=== PATIENT | female | born 1970 | race Caucasian/White ===

== ENCOUNTER 2016-10-26 17:10 | Emergency (ER) | payer MEDICAID ==
[2016-10-26] MEDS ORDERED: ALBUTEROL SULFATE/IPRATROPIUM 3 ML NEBU IH ONE ×2 (20:20→21:10)
[2016-10-26 20:32] LABS: Hematocrit 42.7 % (37.0-47.0); Hemoglobin 13.9 gm/dL (12.5-16.0); Mean Cell Volume 83.6 fl (78-100); Mean Corpuscular Hemoglobin 27.2 pg (27-31); Mean Corpuscular Hgb Conc 32.6 g/dl (32-36); Mean Platelet Volume 8.9 fl (6.0-9.5); Neutrophil # 13.3 K/mm3 (1.3-6.0); Neutrophil % 70.1 % (42-75.0); Platelet Count 676 K/mm3 (150-450); Red Blood Count 5.11 M/mm3 (4.2-5.4); Red Cell Distribution Width 14.1 % (11.5-14.0)
--- NOTE | 2016-10-26 20:33 | ERNOTE ---
Date of Service: 10/26/16 Time Seen by Provider: 10/26/16 20:06 Stated Complaint: COUGH, CHEST CONGESTION Presenting Symptoms:: cough, other - sinus congestion Source: patient Exam Limitations: no limitations Immunizations: IMMUNIZATION HX Immunizations Up to Date Yes History of Influenza Vaccine No Hx Pneumococcal Vaccination No Allergies/Adverse Reactions: Allergies acetaminophen [From Percocet] Allergy (Intermediate, Verified 10/26/16 17:26) HALLUCINATIONS WITH 2 TABLETS. Pt takes acetaminophen without complications oxycodone HCl [From Percocet] Allergy (Intermediate, Verified 10/26/16 17:26) HALLUCINATIONS WITH 2 TABLETS amoxicillin [Amoxicillin] Adverse Reaction (Verified 10/26/16 17:26) YEAST INFECTION Home Medications: HOME MEDICATIONS Enalapril Maleate [Vasotec] 20 mg PO DAILY 11/15/15 [Last Taken Unknown] glipiZIDE [Glucotrol] 5 mg PO BID 11/15/15 [Last Taken Unknown] metFORMIN HCL [Glucophage] 1,000 mg PO BIDWM 11/15/15 [Last Taken Unknown] traMADol HCL [Ultram] 50 mg PO QID PRN 02/13/16 [Last Taken Unknown] Albuterol Sulfate [Ventolin Hfa] 1 - 2 puff IH Q4H PRN #1 inhaler 09/23/16 [ Last Taken Unknown] Albuterol Sulfate [Albuterol Sulfate 2.5 MG/0.5ML] 1 vial IH Q4H PRN #100 vial 10/26/16 [Last Taken Unknown] - History of Present Ilness Narrative: Pt. comes in with c/o SOB, CP, fevers, sinus and chest congestion and "coughing so hard she throws up" Pt. states that she has been battling a upper resp infection intermittently for four week and has been on different antibiotics each time. Pt. is currently antibiotics. Pt. states that symptoms have worsened constantly since onset. Pt. denies any alleviating factors. Review of Systems - Review of Systems Constitutional: Present: no symptoms reported. Absent: recent illness, fever, chills, weakness, fatigue, malaise EYE: Present: no symptoms reported ENT: Present: nose congestion Respiratory: Present: shortness of breath, cough. Absent: wheezing Cardiology: Present: chest pain. Absent: palpitations, edema Gastrointestinal/Abdominal: Present: no symptoms reported. Absent: nausea, vomiting, diarrhea, abdominal pain Genitourinary: Present: no symptoms reported Musculoskeletal: Present: no symptoms reported. Absent: back pain, joint pain Skin: Present: no symptoms reported Neurological: Present: headache. Absent: dizziness/light-headedness, numbness, tingling All Other Systems: All systems neg except as marked - Patient's Past Medical History Patient History - Medical: Anxiety, Diabetes Type 2, Depression, Hypothyroidism , Obesity Patient History - Cardiac/Respiratory: Hypertension Patient History - Cancer: No Hx of Cancer Patient History - Surgical Procedures: Cholecystectomy, D & C, Tubal Ligation, Other Patient History - Other: None - Family History Mother Family History - Cardiac/Respiratory: Hypertension Father Family History - Medical: Diabetes Type 2 Family History - Cardiac/Respiratory: Hypertension - Social History Living Situations: home Alcohol Use: none Drug Use: none - Immunizations Immunizations Up to Date: Yes Hx Pneumococcal Vaccination: No History of Influenza Vaccine: No Physical Exam - Physical Exam General Appearance: Present: wd/wn, alert, no apparent distress Eye Exam: Normal inspection: bilateral, PERRL: bilateral, EOMI: bilateral Ears, Nose, Throat: Present: hearing grossly normal, nasal congestion, sinus pain/drainage - maxillary, normal pharynx Neck: Present: normal inspection, nontender. Absent: lymphadenopathy (R), lymphadenopathy (L) Respiratory: Present: no respiratory distress, normal breath sounds, no accessory muscle use, chest nontender, lungs clear Cardiovascular/Chest: Present: regular rate, rhythm, no murmur, normal peripheral pulses Gastrointestinal/Abdominal: Present: normal bowel sounds, nontender, nondistended, soft, no organomegaly Back Exam: Present: normal inspection, normal range of motion, no CVA tenderness , no vertebral tenderness Extremity Exam: Present: normal inspection, non-tender, no edema, normal range of motion Neurological Exam: Present: alert, oriented, normal mood/affect, no motor/ sensory deficits Skin Exam: Present: normal color, warm/dry. Absent: pallor, skin rash ED Progress - Date and Time Seen: Date and Time: 10/26/16 21:09 Feel that WBC and PLT count are appropriately elevated for illness per pt. baseline but will have pt. mention when she follows up with [facility] hematology. - Results and Orders Patient's Lab Results:: I have reviewed the patient's lab results. - Vital Signs Patient's Vital Signs:: I have reviewed the patient's vital signs. Vital Signs: Vital Signs 10/26/16 17:21 Temperature 37.7 C H Pulse Rate 100 Respiratory 12 Rate Blood Pressure 163/98 O2 Sat by Pulse 95 Oximetry - EKG EKG: NSR EKG read: Interp. by me - X-Ray X-Ray #1 X-Ray: chest Interpretation: Interp. by me X-ray Comments: stable granulomatous disease, no consolidation, no pleural effusion. - Progress/Reassessment Chief Complaint: Upper Respiratory Symptoms Progress:: Improved Departure - Departure Clinical Impression: Bronchitis Headache Qualifiers: Headache type: other headache syndrome Qualified Code(s): G44.89 - Other headache syndrome Disposition: Home self-care Condition: Good Instructions: Acute Bronchitis, [id number]-[id number], Nausea, Adult, [id number] Additional Instructions: Please follow up with provider as planned. Please use nebulizer every four hours after you pick it up tomorrow, use inhaler in the meantime. Please perform deep breathing and coughing two times every hour for lung exercises. Referrals: Claribel Haley MD [Primary Care Provider] - Prescriptions: Albuterol Sulfate [Albuterol Sulfate 2.5 MG/0.5ML] 1 vial IH Q4H PRN #100 vial PRN Reason: Shortness Of Breath
[2016-10-26 20:52] LABS: ALT 39 U/L (19-67); AST 16 U/L (0-48); Albumin * 3.4 gm/dl (3.4-5.0); Alkaline Phosphatase * 62 U/L (50-170); Anion Gap 11.2 mmol/L (6.8-13.8); BNP * 70 pg/mL (5-150); BUN/Creatinine Ratio 15.8 (9.0-21.6); Bilirubin, Total 0.2 mg/dL (0.0-1.1); Blood Urea Nitrogen 12 mg/dL (3-23); Ca. Corrected For Albumin 9.3 mg/dL (8.4-10.2); Calcium * 9.1 mg/dL (7.9-10.9); Carbon Dioxide 26.6 mmol/L (24-32.6); Chloride 104 mmol/L (97-106); Glucose * 167 mg/dL (70-110); Potassium 3.8 mmol/L (3.4-4.6); Sodium 138 mmol/L (132-142); Total Protein 7.4 gm/dL (6.2-8.2); Troponin I Less than 0.017 ng/ml (0.00-0.10)
[2016-10-26] MEDS ORDERED: KETOROLAC TROMETHAMINE 60 MG/2 ML VIAL IM ONE ×2 (22:12→22:19)
[2016-10-26] MEDS ORDERED: diphenhydrAMINE HCL 50 MG/ML VIAL IM ONE (22:12)
[2016-10-26] MEDS ORDERED: METOCLOPRAMIDE HCL 5 MG/ML VIAL IM ONE (22:13)
[2016-10-26] MEDS ORDERED: diphenhydrAMINE HCL 50 MG/ML VIAL ONE (22:19)
[2016-10-26] MEDS ORDERED: METOCLOPRAMIDE HCL 5 MG/ML VIAL ONE (22:19)
[2016-10-26 22:37] VITALS: BP 170/91
== END 2016-10-26 22:50 | disposition home or self-care (01) ==
LOC: ER 17:10
DX: J40 Bronchitis, not specified as acute or chronic (principal); G44.89 Other headache syndrome

== ENCOUNTER 2017-06-28 14:05 | Emergency (ER) | payer MEDICAID ==
[2017-06-28 14:14] VITALS: BP 180/96
[2017-06-28] MEDS ORDERED: KETOROLAC TROMETHAMINE 60 MG/2 ML VIAL IM ONE ×2 (14:43→14:46)
--- NOTE | 2017-06-28 14:51 | ERNOTE ---
Upper Extremity HPI - Narrative Date of Service: 06/28/17 - General Extremities Pain Location: wrist: right Time Seen by Provider: 06/28/17 14:20 Source: patient Exam Limitations: no limitations - Immun/Allergies/Home Medications Immunizations: IMMUNIZATION HX Immunizations Up to Date Yes History of Influenza Vaccine No Hx Pneumococcal Vaccination No Allergies/Adverse Reactions: Allergies Allergy/AdvReac Type Severity Reaction Status Date / Time acetaminophen [From Percocet] Allergy Intermediate HALLUCINATI Verified 14:14 ONS oxycodone HCl [From Percocet] Allergy Intermediate HALLUCINATI Verified 14:14 ONS amoxicillin [Amoxicillin] AdvReac YEAST Verified 06/28/17 14:14 INFECTION Home Medications: HOME MEDICATIONS Enalapril Maleate [Vasotec] 20 mg PO DAILY 11/15/15 [Last Taken Unknown] glipiZIDE [Glucotrol] 5 mg PO BID 11/15/15 [Last Taken Unknown] metFORMIN HCL [Glucophage] 1,000 mg PO BIDWM 11/15/15 [Last Taken Unknown] - History of Present Illness Narrative: 46-year-old female presents to the emergency room for right wrist discomfort. Patient states that she has had an increase in this right wrist discomfort over the last few days. Range of motion is within normal limits but after certain movements her right hand will start to have increased pain, numbness, and tingle. Patient states she has had a carpal carpal tunnel surgery on this right wrist, and that this pain and other symptoms are similar to her symptoms before her previous surgery Date (Duration): 06/28/17 Occurred: last week Location of Incident: home Method of Injury: Reports: no apparent injury Modifying Factors - (Improves): Reports: immobilization Modifying Factors - (Worsens): Reports: movement Associated Symptoms: Reports: tingling, numbness distally Other Injuries: Reports: none Prior Treament: Reports: similar symptoms before Review of Systems - Review of Systems Constitutional: Present: See HPI EYE: Present: see HPI ENT: Present: See HPI Respiratory: Present: See HPI Cardiology: Present: See HPI Gastrointestinal/Abdominal: Present: See HPI Genitourinary: Present: See HPI Musculoskeletal: Present: no symptoms reported, joint pain Skin: Present: no symptoms reported Neurological: Present: See HPI Endocrine: Present: no symptoms reported Hematologic/Lymphatic: Present: no symptoms reported Psych: Present: no symptoms reported All Other Systems: All systems neg except as marked - Patient's Past Medical History Patient History - Medical: Diabetes Type 2, Depression, Hypothyroidism, Obesity Patient History - Cardiac/Respiratory: Hypertension Patient History - Cancer: No Hx of Cancer Patient History - Surgical Procedures: Cholecystectomy, D & C, Tubal Ligation, Other Patient History - Other: None - Family History Mother Family History - Cardiac/Respiratory: Hypertension Father Family History - Medical: Diabetes Type 2 Family History - Cardiac/Respiratory: Hypertension - Social History Living Situations: home Abuse History: No History of abuse Psych History: Hx of Depression Smoking Status: Never smoker Alcohol Use: none Drug Use: none - Immunizations Immunizations Up to Date: Yes Hx Pneumococcal Vaccination: No History of Influenza Vaccine: No Physical Exam - Physical Exam Narrative: positive phalens and tinels test. General Appearance: Present: wd/wn, alert, no apparent distress Head Exam: Present: normal inspection, no evidence of injury Eye Exam: Normal inspection: bilateral, PERRL: bilateral, EOMI: bilateral Ears, Nose, Throat: Present: normal ENT inspection, normal pharynx Neck: Present: normal inspection, nontender Respiratory: Present: no respiratory distress, normal breath sounds, no accessory muscle use, chest nontender Cardiovascular/Chest: Present: regular rate, rhythm, normal peripheral pulses Peripheral Pulses: N=norm/S=strong/W=weak/B=bound/A=absent: Radial (R): Normal, Radial (L): Normal Gastrointestinal/Abdominal: Present: normal bowel sounds, nontender, soft. Absent: distended Back Exam: Present: normal inspection, normal range of motion, no vertebral tenderness Extremity Exam: Present: normal except -, normal range of motion, no edema Neurological Exam: Present: alert, oriented, normal mood/affect, no motor/ sensory deficits Skin Exam: Present: normal color, warm/dry Lymphatic Exam: Present: no adenopathy ED Progress - Vital Signs Vital Signs: Vital Signs 06/28/17 14:10 Temperature 37.6 C H Pulse Rate 90 Respiratory 16 Rate Blood Pressure 180/96 O2 Sat by Pulse 97 Oximetry - X-Ray X-Ray #1 X-Ray: wrist Interpretation: Reviewed by me X-ray Comments: [facility] PATIENT RADIOLOGY STUDY REPORT Patient Patient Name:PELON SELBY Date: 1970 Sex: F Order Number: [id number] Unique Exam ID: [id number] Exam Requested: WRISTNAVRT - Wrist 3 View W/ William RT * Date Scheduled: 06-28-2017 02:14 PM Study Priority: Requesting Service: Requesting Physician: Marleen Hernandez Reason for Exam: wrist pain Radiological Report : [place] [address] NAME: PELON SELBY : 1970 MR #: [id number] CC: LOC: [facility] DATE: X-RAY REPORT [id number] RAD/Wrist 3 View W/ William RT * Exam Date: 06/28/2017 14:14 Ordering Physician: Marleen Hernandez HISTORY/INDICATION: wrist pain Additional history from technologist: Repetitive motion injury. Pain in the carpal tunnel area. TECHNIQUE: 4 views of the right wrist. COMPARISONS: None available. Wrist 3 View W/ William RT * No definable fracture lucency or cortical discontinuity. There is mildly increased density within the central aspect of the lunate. There is no evidence for fragmentation or collapse. Joint spaces are in gross normal alignment without subluxation or dislocation. Minimal ulnar positive variance noted. Diffuse soft tissue prominence which may be secondary due to body habitus. No definite focal soft tissue finding. IMPRESSION: 1. No definable fracture. 2. Increased density within the central aspect of the lunate. Consider lunate avascular necrosis/ Kienbock disease. 3. Minimal ulnar positive variance noted. Correlate clinically for triangular fibrocartilage complex pathology. 4. Consider nonemergent routine MRI of the wrist to further evaluate. Electronically signed by Dmitry Zamarripa M.D.. Dmitry Zamarripa MD Dict: 06/28/171428 Typed: 06/28/171428/ - Progress/Reassessment Chief Complaint: Wrist Injury/Pain Plan - Plan Plan: patient will try OTC NSAID and follow up wi Dr Shea. patient has some relief with cockup wrist splint and NSAID Departure Clinical Impression: Carpal tunnel syndrome of right wrist - Departure Disposition: Home Follow Up Needed Condition: Stable Instructions: Carpal Tunnel Syndrome, [id number] Additional Instructions: Continue any previous home medications as directed. Follow-up with Dr. Thomas in the next few days. Return to the emergency room if symptoms return or persist. She may take [id number] ibuprofen or Naprosyn as needed for pain. Referrals: Claribel Haley MD [Primary Care Provider] -
== END 2017-06-28 15:03 | disposition home or self-care (01) ==
LOC: ER 14:05
PROC: 2W3CX1Z Immobilization of Right Lower Arm using Splint (ICD-10-PCS; principal; 2017-06-28)
DX: G56.01 Carpal tunnel syndrome, right upper limb (principal)